=== PATIENT | female | born 1960 | race Caucasian/White ===

== ENCOUNTER 2021-11-01 18:21 | Emergency (ER) | payer OTHER ==
[2021-11-01 19:06] VITALS: BP 123/75; PULSE 91; TEMP 97.8
[2021-11-01] MEDS ORDERED: MAG HYDROX/AL HYDROX/SIMETH 30 ML UNIT-DOSE CUP PO ONE (20:15)
[2021-11-01] MEDS ORDERED: ACETAMINOPHEN 1000 MG/100 ML VIAL IVPB ONE (20:15)
[2021-11-01] MEDS ORDERED: FAMOTIDINE 20 MG/50 ML IVPB 20 MG/50 ML MG IVPB ONE ×2 (20:15→20:33)
[2021-11-01] MEDS ORDERED: ACETAMINOPHEN INJECTION 100 ML IVPB ONE (20:32)
[2021-11-01] MEDS ORDERED: MAG HYDROX/AL HYDROX/SIMETH 30 ML UNIT-DOSE CUP ONE (20:33)
[2021-11-01 21:52] LABS: BASO % 0.7 % (0-2.0); EOS % 0.9 % (0-4.5); HEMATOCRIT 44.7 % (32.4-45.2); HEMOGLOBIN 14.4 GM/dL (10.7-15.3); MCH 26.2 pg (25.7-33.7); MCHC 32.2 g/dl (32.0-36.0); MEAN CELL VOLUME 81.2 fl (80-96); MONO % 5.4 % (3.8-10.2); PLATELET COUNT 225 10^3/uL (134-434); RDW 13.6 % (11.6-15.6); WHITE BLOOD COUNT 15.3 K/mm3 (4.0-10.0)
[2021-11-01 22:11] LABS: CHLORIDE 102 mmol/L (98-107); SODIUM 137 mmol/L (136-145)
[2021-11-01 22:13] LABS: CALCIUM 9.5 mg/dL (8.5-10.1)
[2021-11-01 22:14] LABS: ANION GAP 6 MMOL/L (8-16); BLOOD UREA NITROGEN 10.2 mg/dL (7-18); CO2 29 mmol/L (21-32); LIPASE 108 U/L (73-393)
[2021-11-01 22:15] LABS: GLUCOSE,RANDOM 89 mg/dL (74-106)
[2021-11-01 22:17] LABS: CREATININE 0.8 mg/dL (0.55-1.3); SGOT/AST 42 U/L (15-37); SGPT/ALT 42 U/L (13-61)
[2021-11-01 22:18] LABS: BILIRUBIN,TOTAL 1.1 mg/dL (0.2-1); TOT PROT 8.8 g/dl (6.4-8.2)
[2021-11-01 22:19] LABS: ALK PHOS 95 U/L (45-117)
[2021-11-01 22:26] LABS: URINE APPEARANCE CLEAR; URINE BILIRUBIN NEGATIVE (NEGATIVE); URINE COLOR YELLOW; URINE GLUCOSE (UA) NEGATIVE (NEGATIVE); URINE KETONE NEGATIVE (NEGATIVE); URINE LEUK ESTERASE NEGATIVE (NEGATIVE); URINE NITRITE NEGATIVE (NEGATIVE); URINE PROTEIN NEGATIVE (NEGATIVE); URINE UROBILINOGEN 0.2 mg/dL (0.2-1.0)
== END 2021-11-02 02:12 | disposition home or self-care (01) ==
LOC: JER 18:21
PROC: 3E0333Z Introduction of Anti-inflammatory into Peripheral Vein, Percutaneous Approach (ICD-10-PCS; principal; 2021-11-01)
PROC: 3E033GC Introduction of Other Therapeutic Substance into Peripheral Vein, Percutaneous Approach (ICD-10-PCS; 2021-11-01)
DX: K52.9 Noninfective gastroenteritis and colitis, unspecified (principal)
CPT/HCPCS: 36415; 71046-TC-FY; 74177-TC; 80053; 81003; 82550; 83690; 84484; 85025; 87045; 87046; 87086; 87324; 87449; 93005; 93010; 99285-25; J0131; Q9967

== ENCOUNTER 2022-10-19 18:12 | Emergency (ER) | payer OTHER ==
[2022-10-19 18:24] VITALS: BP 131/69; PULSE 74; RESP 18; TEMP 98.1; BMI 29.2
[2022-10-19] MEDS ORDERED: METHOCARBAMOL 500 MG TABLET PO ONE (19:16)
[2022-10-19] MEDS ORDERED: METHOCARBAMOL 500 MG TABLET ONE (19:28)
[2022-10-19] MEDS ORDERED: ACETAMINOPHEN 325 MG TABLET (FP) PO ONE (19:44)
[2022-10-19] MEDS ORDERED: LIDOCAINE 5% TOPICAL PATCH TP ONE (19:50)
[2022-10-19] MEDS ORDERED: LIDOCAINE 5% TOPICAL PATCH ONE (20:18)
[2022-10-19] MEDS ORDERED: ACETAMINOPHEN 325 MG TABLET (FP) ONE (20:18)
[2022-10-19 20:36] LABS: BASO % 0.8 % (0-2.0); EOS % 1.4 % (0-4.5); HEMATOCRIT 39.9 % (32.4-45.2); HEMOGLOBIN 12.8 GM/dL (10.7-15.3); LYMPH % 33.5 % (8-40); MEAN CELL VOLUME 81.1 fl (80-96); MEAN PLT VOLUME 9.9 fl (7.5-11.1); MONO % 5.8 % (3.8-10.2); NEUT % 58.5 % (42.8-82.8); PLATELET COUNT 191 10^3/uL (134-434); RBC 4.92 M/mm3 (3.60-5.2); RDW 12.9 % (11.6-15.6)
[2022-10-19 20:53] LABS: ALBUMIN 3.3 g/dl (3.4-5.0); BLOOD UREA NITROGEN 11.7 mg/dL (7-18); CALCIUM 8.7 mg/dL (8.5-10.1); MAGNESIUM 1.8 mg/dL (1.8-2.4)
[2022-10-19 20:57] LABS: CREATININE 0.9 mg/dL (0.55-1.3)
[2022-10-19 20:58] LABS: BILIRUBIN,TOTAL 0.6 mg/dL (0.2-1); TOT PROT 7.1 g/dl (6.4-8.2)
[2022-10-19] MEDS ORDERED: KETOROLAC TROMETHAMINE 15 MG/ML VIAL IVPUSH ONE (21:53)
[2022-10-19] MEDS ORDERED: KETOROLAC TROMETHAMINE 15 MG/ML VIAL ONE (22:09)
[2022-10-19] MEDS ORDERED: KETOROLAC TROMETHAMINE 30 MG/1 ML VIAL IM ONE (22:09)
[2022-10-19] MEDS ORDERED: KETOROLAC TROMETHAMINE 30 MG/1 ML VIAL ONE (22:10)
== END 2022-10-19 22:46 | disposition home or self-care (01) ==
LOC: JER 18:12
PROC: 3E0233Z Introduction of Anti-inflammatory into Muscle, Percutaneous Approach (ICD-10-PCS; principal; 2022-10-19)
DX: R07.89 Other chest pain (principal); M54.50 Low back pain, unspecified
CPT/HCPCS: 36415; 71046-TC-FY; 80053; 83735; 84484; 85025; 93005; 93010; 99285-25

== ENCOUNTER 2023-03-19 04:26 | Day surgery (SDC) | payer OTHER ==
[2023-03-18 16:15] VITALS: BMI 30.7
[2023-03-19 13:28] VITALS: BP 117/63; PULSE 85; RESP 23; TEMP 98
== END 2023-03-19 13:38 | disposition home or self-care (01) ==
LOC: JASU-ENDO 04:26
PROVIDERS: ATTEND Internal Medicine Gastroenterology
PROC: 0DB78ZX Excision of Stomach, Pylorus, Via Natural or Artificial Opening Endoscopic, Diagnostic (ICD-10-PCS; 2023-03-19)
PROC: 0DB68ZX Excision of Stomach, Via Natural or Artificial Opening Endoscopic, Diagnostic (ICD-10-PCS; 2023-03-19)
PROC: 0DB98ZX Excision of Duodenum, Via Natural or Artificial Opening Endoscopic, Diagnostic (ICD-10-PCS; principal; 2023-03-19 11:15)
DX: K29.50 Unspecified chronic gastritis without bleeding (principal); B96.81 Helicobacter pylori [H. pylori] as the cause of diseases classified elsewhere; K31.7 Polyp of stomach and duodenum
CPT/HCPCS: 88305-TC; 88341-TC; 88342-TC

== ENCOUNTER 2024-10-22 04:18 | Day surgery (SDC) | payer OTHER ==
[2024-10-21 15:13] VITALS: BMI 28.8
[2024-10-22] MEDS ORDERED: ACETAMINOPHEN 500 MG TABLET (FP) PO PRN (09:15)
[2024-10-22] MEDS: LIDOCAINE 1% P/F 10 MG/ML VIAL INF ONE (18:37)
[2024-10-22] MEDS: BUPIVACAINE HCL/PF 0.5% (5MG/ML) 10 ML VIAL IJ ONE ×2 (18:37)
[2024-10-22] MEDS: IOHEXOL 180 MG/1 ML ML IJ ONE (18:38)
[2024-10-22 19:09] VITALS: RESP 18
[2024-10-22 19:27] VITALS: BP 116/70; PULSE 80; TEMP 97.4
== END 2024-10-22 19:30 | disposition home or self-care (01) ==
LOC: JASU-SURG 04:18
PROVIDERS: ATTEND Pain Medicine Pain Medicine
PROC: 3E0T33Z Introduction of Anti-inflammatory into Peripheral Nerves and Plexi, Percutaneous Approach (ICD-10-PCS; 2024-10-22)
PROC: 3E0T3BZ Introduction of Anesthetic Agent into Peripheral Nerves and Plexi, Percutaneous Approach (ICD-10-PCS; principal; 2024-10-22 17:15)
DX: M47.812 Spondylosis without myelopathy or radiculopathy, cervical region (principal)
CPT/HCPCS: 76000-TC-FY

== ENCOUNTER → 2024-11-26 | Day surgery (SDC) | payer OTHER ==
[2024-11-25 15:28] VITALS: BMI 27.4
[~2024-11-26] MED LIST: ACETAMINOPHEN 500 MG TABLET (FP) PO PRN; BUPIVACAINE HCL/PF 0.25% (2.5MG/ML) 10 ML VIAL ONE; BUPIVACAINE HCL/PF 0.5% (5MG/ML) 10 ML VIAL ONE
== END | disposition home or self-care (01) ==
LOC: JASU-SURG 04:27
PROVIDERS: ATTEND Pain Medicine Pain Medicine
DX: Z53.8 Procedure and treatment not carried out for other reasons (principal)

== ENCOUNTER 2025-04-01 09:45 | Day surgery (SDC) | payer OTHER ==
[2025-03-30 15:34] VITALS: BMI 28.6
[2025-04-01] MEDS: LIDOCAINE HCL/PF 2% SDV 5ML VIAL INF ONE
[2025-04-01] MEDS: BUPIVACAINE HCL/PF 0.5% (5 MG/ML) 30 ML VIAL IJ ONE
[2025-04-01 14:40] VITALS: TEMP 97.5
[2025-04-01] MEDS: DEXAMETHASONE SOD PHOSPHATE 20 MG/5 ML VIAL IM ONE ×2 (15:03)
[2025-04-01] MEDS: LIDOCAINE HCL 1% PRESERVATIVE FREE - 30ML VIAL IJ ONE (15:03)
[2025-04-01 15:41] VITALS: RESP 18
[2025-04-01 16:07] VITALS: BP 118/64; PULSE 76
== END 2025-04-01 16:00 | disposition home or self-care (01) ==
LOC: JASU-SURG 09:45
PROVIDERS: ATTEND Pain Medicine Pain Medicine
PROC: 3E0R3BZ Introduction of Anesthetic Agent into Spinal Canal, Percutaneous Approach (ICD-10-PCS; 2025-04-01)
PROC: 3E0R33Z Introduction of Anti-inflammatory into Spinal Canal, Percutaneous Approach (ICD-10-PCS; principal; 2025-04-01 15:30)
DX: M54.16 Radiculopathy, lumbar region (principal)
CPT/HCPCS: 76000-TC-FY